=== PATIENT | female | born 1980 | race Caucasian/White ===

== ENCOUNTER → 2018-03-07 17:44 | Outpatient (CLI) | payer BC, SELFPAY ==
--- NOTE | 2018-03-07 16:00 | ASPSI_PTH ---
PATIENT: VISH BEARDEN LOC: [facility] U#:[id number] AGE/SX: 44/F ROOM: RE03/07/[address]: Dr. Jarrod Winkler MD : 1980 BED: DIS: SPEC #: [id number] RECD: 03/07/18 17:00 STATUS: NAVYA JUD #: [id number] KEIRY: 03/07/18 16:[address]: Jarrod Winkler DEPT: CYTOLOGY RECD BY: Paola Loja Tissues: Thyroid gland, NOS Procedures: Pap Stain (control) Surgery Specimen Level IV Cell Block Cytospin Fluid Cytology Other HEADER OPERATION: Fine needle aspiration, left thyroid PRE-OP DIAGNOSIS: Multinodular goiter TISSUE SUBMITTED: Fine needle aspiration, left thyroid DIAGNOSIS CYTOLOGY Left thyroid nodule, FNA (cytospin and cell block): Suggestive of cystic follicular lesion. See cytology study and comment. SJ:edwin 03/09/18 COMMENT Immediate cytologic evaluation to determine adequacy is not applicable. Correlation with clinical, radiologic findings and appropriate follow up are necessary. CYTOLOGY STUDY Slides are reviewed. The specimen is limited in evaluation due to lack of adequate number of follicular cells. The cell block consists of rare macrophages. Cytospin smear shows predominantly macrophages and a few benign follicular cells. CYTOLOGY GROSS Received is 25 ml of hazy light red fluid labeled with the patient's name and and designated per the requisition as FNA left thyroid. Submitted for cytology preparation including cell block. / CC:cc 03/08/18 TC:5 CPT: 06244, 33709
== END ==
PROVIDERS: Visit Provider Otolaryngology
DX: E04.2 Nontoxic multinodular goiter (principal)
CPT/HCPCS: 88108; 88161; 88305

== ENCOUNTER → 2018-08-21 13:20 | Outpatient (CLI) | payer BC, SELFPAY ==
[2018-08-11 20:09] VITALS: BMI 31.1
== END ==
PROVIDERS: Family Provider Family Medicine; PCP Family Medicine; Referring Provider Otolaryngology; Visit Provider Otolaryngology
DX: Z53.9 Procedure and treatment not carried out, unspecified reason (principal)

== ENCOUNTER 2018-12-29 13:56 | Observation (INO) | payer OTHER, SELFPAY ==
[2018-08-11 20:09] VITALS: BMI 31.1
[2018-12-29] VITALS (9 sets, daily range): BP systolic 108–124; BP diastolic 67–91; PULSE 85–107; RESP 14–18; TEMP 36.7–37.3; O2SAT 92–100; BMI 25.8
--- NOTE | 2018-12-29 | THYROID_PTH ---
PATIENT: VISH BEARDEN LOC: MS[facility] U#:[id number] AGE/SX: 38/F ROOM: ID323 RE12/29/[address]: Dr. Jarrod Winkler MD : 1980 BED: 1 DIS: 12/30/2018 SPEC #: [id number] RECD: 12/29/18 13:26 STATUS: NAVYA REQ #: [id number] KEIRY: 12/29/18 00:[address]: Jarrod Winkler DEPT: SURGICAL PATHOLOGY RECD BY: Nati Rebolledo ENTERED: 12/29/18 14:13 SP TYPE: THYROID OTHR DR: Dr. Isaiah Oviedo MD Tissues: Thyroid gland, NOS Procedures: Frozen Section (charge) Frozen Section Add'l ([facility]) Surgery Specimen Level V HEADER OPERATION: Left thyroid lobectomy, frozen section PRE-OP DIAGNOSIS: Multinodular goiter; dysphagia TISSUE SUBMITTED: Left thyroid node frozen section at 1319 FROZEN SECTION DIAGNOSIS 2 x 2 cm nodule: Sections show a background of nodular goiter with a single follicular nodule showing diffuse H?rthle cell change and microfollicular pattern. CE:edwin 12/29/18 MICROSCOPIC DIAGNOSIS Left lobe of thyroid, lobectomy: Colloid nodules with focal adenomatous and H?rthle cell change. 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 Benign parathyroid tissue (4 mm in greatest dimension). One out of one lymph node negative for carcinoma. Chronic follicular thyroiditis. See cancer checklist below. AM:edwin 01/02/19 COMMENT THYROID CANCER SUMMARY: Procedure - thyroid lobectomy, left Specimen integrity - intact Specimen size - 4.3 x 3.2 x 2.2 cm Specimen weight - 14 gm Tumor focality - unifocal Dominant tumor: Tumor laterality - left lobe Tumor size - 1 x 1 mm Histologic type - papillary carcinoma, classical Architecture - classical, papillary Cytomorphology - classical Margins - uninvolved by carcinoma Tumor capsule - none Tumor capsular invasion - not applicable Lymph-Vascular invasion - not identified Extrathyroidal extension - not present PATHOLOGIC STAGE: pT1 N0 Mx The above summary is in compliance with [employer] Path[employer] (CAP) Cancer Protocols Checklist and [place] [employer] on Cancer (AJCC), Staging Manual, 8th Ed. Immunohistochemistry ([id number]) supports the diagnosis. This case is seen in consultation with Dr. Fernandez of [place] who concurs with the diagnosis. The consultation report is viewable if patient's EMR. Case has been reviewed in consultation with Dr. Ivy who concurs with the above diagnosis. IDC:CE MICROSCOPIC DESCRIPTION Slides are reviewed. GROSS DESCRIPTION Received fresh for frozen section diagnosis labeled with the patient's name is a specimen designated left thyroid lobe. The specimen consists of a portion of thyroid tissue grossly consistent with left thyroid lobe measuring 4.3 cm upper pole to lower pole, 3.2 cm in width and 2.2 cm in depth. Thyroid weight is 14.0 gm. The excisional surface is reddish-brown with some focal posterior fibrous adhesion. The thyroid lobe is serially cross-sectioned to reveal a well-circumscribed thyroid nodule measuring 2 x 2 x 1.8 cm. Cut surfaces of the nodule are cystic and contain watery colloid. Some areas also show focal recent hemorrhage. Touch imprint and frozen section are obtained from the nodule. Sections through the remainder of thyroid tissue show cut surfaces which are reddish-pink and homogenous. Multi Punch Operator sections are submitted as follows: 1 - frozen section, 2-7 - nodule, entirely submitted. / CE:edwin 12/29/18 8-15 - Remainder of left lobe. / AM:edwin 01/01/19 TC:0 CPT: 56235, 16660, 38895
--- NOTE | 2018-12-29 | IMM_PTH ---
PATIENT: VISH BEARDEN LOC: MS3 U#:[id number] AGE/SX: 38/F ROOM: WI323 RE12/29/[address]: Dr. Jarrod Winkler MD : 1980 BED: 1 DIS: 12/30/2018 SPEC #: [id number] RECD: 01/01/19 14:29 STATUS: NAVYA REQ #: [id number] KEIRY: 12/29/18 00:[address]: Jarrod Winkler DEPT: IMMUNOHISTOCHEMISTRY RECD BY: Nati Rebolledo ENTERED: 01/01/19 14:30 SP TYPE: IMMUNO OTHR DR: Dr. Isaiah Oviedo MD Tissues: Thyroid gland, NOS Procedures: HBME (initial) CD56 (add) CK19 (add) GAL-3 (add) HBME (add) PHYSICIAN & INSTITUTION [place] [address] SPECIMEN INFORMATION: Tissue Source: Left thyroid lobectomy Clinical Info: Multinodular goiter Specimen Number: [id number] #6 & 7 CPT code: 30485, 73304 x7 METHODOLOGY: Deparaffinized sections of prefer/formalin-fixed tissue or PAP/DQ stained slides are incubated with monoclonal/polyclonal antibodies/oligonucleotide probes. Localization is made via biotin free immunoperoxidase method. Appropriate controls are performed and reacted as expected. Results on target cell population are indicated in the following table: RESULTS: ANTIBODY / CLONE RESULT Block 6 HBME1 (HBME-1) positive CK19 (A53-B/A2.26) positive GAL3 (9C4) positive CD56 (123C3.D5) negative Block 7 HBME1 (HBME-1) positive CK19 (A53-B/A2.26) negative GAL3 (9C4) negative CD56 (123C3.D5) positive These tests were developed and their performance characteristics determined by [facility]. They may not have been cleared or approved by the U.S. Food and Drug Administration. The FDA has determined that such clearance or approval is not necessary. INTERPRETATION: Left thyroid, lobectomy: Papillary microcarcinoma. AM:edwin 01/02/19 Case has been reviewed in consultation with Dr. Ivy who concurs with the above diagnosis. IDC:CE
[2018-12-29 10:52] LABS: Internal QC Validated? YES +Cl - CLEAR BKGD; Pregnancy, Urine Negative Negative
[2018-12-29 10:53] LABS: Hematocrit 42.5 % (37-47); Hemoglobin 14.7 g/dl (12.0-15.0); Mean Corp Hgb Conc 34.6 g/gl (32-36); Mean Corpuscular Hgb 31.2 pg (27.0-32.0); Mean Corpuscular Volume 90.2 fL (81-99); Mean Platelet Vol. 8.5 fl (6.2-12.0); Platelet Count 327 K/mm3 (150-450); RBC Distribution Width CV 12.9 % (11.6-14.6); RBC Distribution Width SD 42.4 fl (35.1-43.9); Red Blood Count 4.71 M/mm3 (4.2-5.4); White Blood Count 5.1 K/mm3 (4.4-11.0)
[2018-12-29 10:54] LABS: Scan Indicated on CBC? Y/N NO
[2018-12-29 11:02] LABS: BUN 13 mg/dL (7-18); Creatinine, Serum 0.82 mg/dL (0.55-1.02); Glucose 89 mg/dL (74-106)
[2018-12-29 11:03] LABS: Anion Gap 6 (5-15); BUN/Creat Ratio 15.8 RATIO (10-20); Calcium,Total 9.4 mg/dL (8.5-10.1); Chloride 105 mmol/L (98-107); EST Glomerular Filtration Rate 82 mL/min (>60); Est Glom Filt Rate - Afr Amer 99 mL/min (>60); Estimated Creatinine Clearance 84.94 ml/min; Potassium 3.7 mmol/L (3.5-5.1); Sodium Level 139 mmol/L (136-145)
--- NOTE | 2018-12-29 13:50 | PCM.OPRPT ---
Problem List (1) Uninodular goiter Status: Chronic (2) Dysphagia Status: Chronic Report of Operation Date of Procedure: 12/29/18 Pre-Operative Diagnosis: Left thyroid nodule with compresive symtpoms Post-Operative Diagnosis: Same Surgery/Procedure Performed:: Left hemithyroidectomy with laryngeal nerve monitoring Description of Surgical Findings:: Reina is a 38-year-old female presents valuation of a persistent left thyroid nodule. This caused pressure and fullness in the neck and difficulty with swallowing and it failed to show any regression with serial observation and excision was advised for relief as well as definitive evaluation. The risks, alternatives, potential complications, and benefits were discussed at length and any questions answered to the patient and/or caregiver's satisfaction. Witnessed informed consent was obtained in the office, and the patient and/or caregiver was agreeable to proceed. Procedure went as follows: The patient was identified in the preoperative holding and brought to the operating room, placed under general anesthesia and intubated with a neuromonitoring tube. The grounding electrodes were then placed on the chest and confirmed to be operational in accordance with the nicker and breaker's directions to allow for recurrent laryngeal nerve monitoring. The neck was then prepped and draped in usual sterile fashion and the planned skin incision was marked 2 finger breadths above the sternal notch with a marking pen. The incisional line was then injected with 1% lidocaine with 100,000 epinephrine for a total of 6.5 mL. After allowing for vasoconstriction, a 15 blade scalpel was used to make an incision 5 cm in length through the skin and subcutaneous tissues and platysma. A subplatysmal flap was then elevated superiorly and inferiorly to allow for placement of the self-retaining thyroid retractor. The strap muscles were then divided in the midline and beginning on the left side the thyroid lobe dissected in a sub-capsular fashion. The inferior, middle, and superior thyroid vessels were individually clamped and ligated with a combination of 3-0 silk sutures and vascular clips. The parathyroid glands were identified along the inferior vascular pedicle and preserved. The recurrent laryngeal nerve was also identified and followed to its nerve entry point and the thyroid gland dissected free of its attachments to the trachea at Broyle's ligament. This was then transected at the isthmus and sent for pathologic evaluation. The wound bed was then irrigated saline solution and examined for sites of bleeding. No significant bleeding was encountered and a #7 flat drain was then placed into each tracheoesophageal groove and brought out through separate stab incisions in the neck and secured with 3-0 silk sutures. The strap muscles were then re-approximated in the midline with a running 3-0 Vicryl suture followed by interrupted 3-0 Vicryl sutures to close the platysma and subcutaneous tissues. A 5-0 Monocryl was then used to close the skin followed by Cavilon and Steri-Strips completing the procedure. The patient was then returned to anesthesia, revived and extubated having tolerated the procedure well. Type of Anesthesia:: General Anesthesiologist: Amilcar Mcguire Special Medications: none Specimen's removed: left thryoid lobe Drains: #7 flat IVANNA Estimated Blood Loss (mL): 20 mL Fluids Replaced: 1200 mL Grafts/Implants Used: none - Complications none - Admit VTE Documentation VTE Present on Admission: No VTE Mechan Device Prophylaxis: SCD's VTE Pharm Prophylaxis ordered?: No
--- NOTE | 2018-12-29 13:56 | DCINST_ITS ---
- Discharge Diagnoses Current Active Problems: Current Active and Chronic Problems (Last Updated 04/18/18 @ 12:55 by Christine Dailey NP-C) Uninodular goiter (Chronic) Dysphagia (Chronic) You will use the following diet at home:: Regular Discharge Activity: Return to Normal Activity Call your doctor if your incision/area has: Sudden Increased Bleeding, Increased Pain/ Swelling, Foul Smelling Discharge Call your doctor if you observe: Fever of 101 or Higher, Uncontrolled pain Cleanse incision/area with: Do not get Incision Wet Allergies/Adverse Reactions: Allergies acetaminophen [From Percocet] Allergy (Severe, Verified 12/28/18 09:34) hives oxycodone [From Percocet] Allergy (Severe, Verified 12/28/18 09:34) hives morphine Allergy (Severe, Uncoded 12/28/18 09:34) hives Medications to take at Discharge NK 12/28/18 Primary Care Physician: Isaiah Oviedo MD [Primary Care Provider] - Test Results: Test results from this visit will be discussed in further detail at your follow- up appointment, if applicable. Please Follow Up With: Jarrod Winkler MD When: 2 weeks
[2018-12-29] MEDS: Lactated Ringers 1,000 ML 100 ML IV (16:03)
[2018-12-29] MEDS: Ibuprofen 200 MG Tablet 400 MG PO (16:03)
--- NOTE | 2018-12-29 18:05 | NURSING ---
Tolerated Clears shortly after upon arrival to floor. Ordered dinner for tonight. Just assisted to edge of bed and ambulated with assist to bathroom. Voided 500ml and then assisted back to bed.
[2018-12-29] MEDS: Ibuprofen 600 MG Tablet PO (22:32)
[2018-12-30] MEDS: Acetaminophen 325 MG Tablet 650 MG PO (01:01)
[2018-12-30] MEDS: Lactated Ringers 1,000 ML 100 ML IV (01:02)
[2018-12-30 01:13] VITALS: BP 116/73; PULSE 92; RESP 16; TEMP 36.8; O2SAT 97
[2018-12-30] MEDS: Ibuprofen 600 MG Tablet PO ×2 (04:37→10:37)
--- NOTE | 2018-12-30 09:03 | PCM.PN.SRG ---
Subjective: Patient reports she is done well overnight with minimal pain. Objective: Well-appearing female no acute distress. The neck incision is intact without redness, edema, or tenderness. Drain output is minimal serosanguineous. This was removed at the bedside. - Physical Exam General: Alert, Oriented x3 HEENT: Atraumatic, PERRLA, EOMI, Normocephalic - Neck incision is clean dry and intact Neck: Supple Lungs: Normal air movement, No rhonchi, No wheeze Cardiovascular: Regular rate, Regular Rhythm Skin: No rashes, No breakdown Psych/Mental Status: Alert and oriented to time, place, person, mood and affect Vital Signs Temp Pulse Resp BP Pulse Ox 98.2 F 92 16 116/73 97 12/30/18 01:13 12/30/18 01:13 12/30/18 01:13 12/30/18 01:13 12/30/18 01:13 Oxygen Flow Rate (L/min) 2 Oxygen Delivery Method Room Air Weight: 59 kg Body Mass Index (BMI) 25.8 Intake and Output for Last 24 Hours 12/28/18 12/29/18 12/30/18 23:59 23:59 23:59 Intake Total 1793 / 1793 1440 / 1440 Output Total 500 / 500 1262 / 1262 Balance 1293 / 1293 178 / 178 Laboratory Tests Past 24 Hrs 12/29/18 12/29/18 12/29/18 10:33 10:35 10:35 WBC 5.1 RBC 4.71 Hgb 14.7 Hct 42.5 MCV 90.2 MCH 31.2 MCHC 34.6 RDW 12.9 RDW Differential 42.4 Plt Count 327 MPV 8.5 Sodium 139 Potassium 3.7 Chloride 105 Carbon Dioxide 28.0 Anion Gap 6 BUN 13 Creatinine 0.82 Estim Creat Clear Calc 84.94 Est GFR (MDRD) Af Amer 99 Est GFR (MDRD) Non-Af 82 BUN/Creatinine Ratio 15.8 Glucose 89 Calcium 9.4 Urine Test Negative Medical Necessity - Tobacco Use Smoking Status: Never smoker Tobacco Use: Non-smoker Assessment/Plan Patient is doing well status post left hemithyroidectomy for large symptomatic nodule. She is doing well in the postoperative period with minimal drain output and this was removed. At this time she seems appropriate for discharge to home.
[2018-12-30 09:05] VITALS: BP 111/63; PULSE 86; RESP 16; TEMP 36.6; O2SAT 96
== END 2018-12-30 10:40 | disposition home or self-care (01) ==
LOC: SDC 14:12
PROVIDERS: Anesthesiology; Admitting Provider Otolaryngology; Family Provider Family Medicine; PCP Family Medicine; Referring Provider Otolaryngology; Visit Provider Otolaryngology
PROC: (CPT 60220; principal; 2018-12-29 11:45)
DX: C73 Malignant neoplasm of thyroid gland (principal); K21.9 Gastro-esophageal reflux disease without esophagitis; J45.909 Unspecified asthma, uncomplicated
CPT/HCPCS: 00320; 60220; 80048; 81025; 85027; 88307; 88331; 88332; 88341; 88342; 96360; 96361; 99218; J7120; G0378; G0379; J2405

== ENCOUNTER → 2019-01-22 08:01 | Outpatient (CLI) | payer OTHER, SELFPAY ==
[2018-12-29 15:15] VITALS: BMI 25.8
--- NOTE | 2019-01-22 08:05 | US_ITS ---
STUDY: THYROID ULTRASOUND REASON FOR EXAM: Female, 38 years old. Multinodular goiter. Recent left thyroidectomy. TECHNIQUE: Ultrasound evaluation of the thyroid was performed with real-time and static htomas-scale imaging. COMPARISON: None. FINDINGS: RIGHT LOBE: The right lobe of the thyroid gland measures 5.0 x 1.7 x 1.7 cm. There is a homogeneous echotexture. 2 tiny hypoechoic nodules are seen and no larger than 5 mm. LEFT LOBE: Surgically absent. ISTHMUS: The isthmus measures 6 mm . The regional lymph nodes are normal. US/Thyroid IMPRESSION: No significant abnormality of the remaining right thyroid lobe. Electronically Signed: Anatoliy Quintanilla MD at 17:49 EDT , Service support ,
== END ==
PROVIDERS: Family Provider Family Medicine; PCP Family Medicine; Referring Provider Otolaryngology; Visit Provider Otolaryngology
DX: E04.2 Nontoxic multinodular goiter (principal)
CPT/HCPCS: 76536

== ENCOUNTER → 2019-07-05 18:22 | Outpatient (CLI) | payer OTHER, SELFPAY ==
[2018-12-29 15:15] VITALS: BMI 25.8
--- NOTE | 2019-07-05 18:26 | US_ITS ---
STUDY: THYROID ULTRASOUND REASON FOR EXAM: Female, 38 years old. Nodules. TECHNIQUE: Ultrasound evaluation of the thyroid was performed with real-time and static thomas-scale imaging. COMPARISON: January 22, 2019. FINDINGS: RIGHT LOBE: The right lobe of the thyroid gland measures 4.7 x 1.8 x 1.7 cm. There is a homogeneous echotexture. There are 0.6 and 0.3 cm hypoechoic nodules. LEFT LOBE: The left lobe of the thyroid gland is not seen consistent with thyroidectomy. There is 1.6 x 0.5 cm hypoechoic region in the surgical bed. ISTHMUS: The isthmus measures 0.3 cm. The regional lymph nodes are normal. US/Thyroid IMPRESSION: Stable right thyroid nodules. Resection of the left lobe of the thyroid. Nonspecific hypoechoic region in the surgical bed. Electronically Signed: Kelvin Gonzalez MD at 9:34 EST , Service support ,
== END ==
PROVIDERS: Family Provider Family Medicine; PCP Family Medicine; Referring Provider Otolaryngology; Visit Provider Otolaryngology
DX: C73 Malignant neoplasm of thyroid gland (principal)
CPT/HCPCS: 76536

== ENCOUNTER → 2020-07-22 16:52 | Outpatient (CLI) | payer OTHER, SELFPAY ==
[2018-12-29 15:15] VITALS: BMI 25.8
--- NOTE | 2020-07-22 16:58 | US_ITS ---
HISTORY: HX PAPILLARY CARCINOMA LEFT THYROIDECTOMY RIGHT NODULES COMPARISON: 07/05/2019, 01/22/2019 TECHNIQUE: Grayscale and color Doppler sonography of the thyroid gland. FINDINGS: RIGHT LOBE: 4.6 x 1.6 x 1.8 cm LEFT LOBE: Surgically absent ISTHMUS: 3.3 mm Hyperechoic area in the right thyroid lobe with somewhat irregular margins measuring about 7 x 4 x 4 mm with some adjacent punctate echogenic foci suggesting microcalcifications. Anechoic 3 mm right thyroid lobe cyst. Hypoechoic solid right thyroid lobe nodule is noted measuring 6 x 3 x 4 mm, smoothly marginated, wider than tall without calcification (TIRADS 4). Normal morphology lymph node in the left neck measuring 1.4 x 0.3 x 0.4 cm, previously 1.6 x 0.3 x 0.5 cm. US/Thyroid IMPRESSION: Hyperechoic area in the right thyroid lobe with punctate echogenic foci and irregular margins, highly suspicious for neoplasm (TIRADS 5). FNA recommended. at 0514 Reported and signed by: Yessica Rowe MD Electronically Signed: Yessica Rowe MD at 5:14 EST Tel , Service support ,
== END ==
PROVIDERS: PCP Family Medicine; Referring Provider Otolaryngology; Visit Provider Otolaryngology
DX: C73 Malignant neoplasm of thyroid gland (principal)
CPT/HCPCS: 76536

== ENCOUNTER → 2020-11-10 11:33 | Outpatient (CLI) | payer OTHER, SELFPAY ==
[2018-12-29 15:15] VITALS: BMI 25.8
--- NOTE | 2020-11-10 11:37 | US_ITS ---
STUDY: THYROID ULTRASOUND REASON FOR EXAM: Female, 39 years old. 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 COMPARISON: None. FINDINGS: RIGHT LOBE: The right lobe of the thyroid gland measures 4.3 cm x 1.7 cm x 1.8 cm cm. There is a homogeneous echotexture. There is a 2 mm x 2 mm x 3 mm focal area of decreased attenuation with scattered calcifications. This has decreased in size as compared to prior study. LEFT LOBE: The patient is status post left thyroidectomy. ISTHMUS: The isthmus measures 3 mm. The regional lymph nodes are normal. US/Thyroid IMPRESSION: 2 mm x 2 mm x 3 mm focal area of decreased attenuation with scattered calcifications in the mid pole. This has decreased in size as compared to prior study. Electronically Signed: Nitesh Genao MD at 13:48 EDT , Service support ,
== END ==
PROVIDERS: PCP Family Medicine; Referring Provider Otolaryngology; Visit Provider Otolaryngology
DX: C73 Malignant neoplasm of thyroid gland (principal)
CPT/HCPCS: 76536